=== PATIENT | female | born 1990 | race Hispanic/Latino ===

== ENCOUNTER 2016-12-16 20:13 | Emergency (ER) | payer SELFPAY ==
[~2016-12-16] VITALS: Ht 157.5 cm; Wt 92.7 kg
[~2016-12-16 20:13] MED LIST: IBUP-1152 PO; PER5 PO; PREN1TAB47 PO
[2016-12-16 20:25] VITALS: BP 136/88; PULSE 70; RESP 16; O2SAT 99
[2016-12-16 20:48] LABS: BASOPHILS % (AUTO) 0.3 % (0-3); EOSINOPHILS % (AUTO) 2.6 % (0-5); MONOCYTES % (AUTO) 6.1 % (4-12); Mean Corpuscular Hemoglobin 27.2 pg (27.0-35.0); Mean Corpuscular Volume 81.8 fL (81-100); NEUTROPHILS % (AUTO) 61.3 % (40-74); Platelet Count 267 bil/L (150-400)
--- NOTE | 2016-12-16 20:56 | ED.REPORT ---
HPI-Abd Pain F Under 40 Date of Service Dec 16, 2016 ED Provider: Dr. Chu Madrid is a health, Slovenian speaking 25 year old female who presents to the ED with concerns for abdominal pain that started 3 days ago. She states that the pain is not worsened with anything, as is not present with nausea, vomiting or diarrhea. The pain is intermittent, but since its onset, it has become worse and more constant. She reports never experiencing this pain in the past, she is not and is not a heavy drinker. Nursing Notes Stated Complaint: ABDOMINAL PAIN Chief Complaint: Female Abdominal Pain Nursing Notes Reviewed: Yes Allergies: Coded Allergies: sulfamethoxazole (Verified Allergy, Unknown, 12/16/16) trimethoprim (Verified Allergy, Unknown, 12/16/16) Uncoded Allergies: TREMITROPIN (Allergy, Unknown, 12/16/16) [place] antibiotic Scheduled Vit/Fe Fumarate/Fa-Expunged Drug, Do (-Expunged Drug, Do Not Renew!) 1 Tab Tablet 1 TAB PO DAILY Scheduled PRN IBUPROFEN-Expunged Drug, Do Not Renew! (IBUPROFEN-Expunged Drug, Do Not Renew!) 800 Mg Tablet 800 MG PO Q6 PRN PRN Oxycodone/APAP-Expunged Drug, Do Not Renew! (Percocet 5/325-Expunged Drug, Do Not Renew!) 1 Ea Tablet 1-2 EA PO Q6 PRN PRN General Time Seen by MD: 20:56 Chief Complaint Abdominal pain Hx Obtained From: Patient, Snag Grinder Arrived By: Walk-in Sudden in Onset?: Yes Onset Occurred: 3 days ago Symptom Duration: Intermittent Location: : Diffuse Quality: Painful Severity: Current: Mild Severity: Maximum: Moderate Similar Sx Previous: Yes Past Medical History Past Medical History Healthy Review of Systems Constitutional: Denies: Chills, Fever, Malaise, Weakness - generalized Respiratory: Denies: Non-productive cough, Shortness of breath, Wheezing Cardiovascular: Denies: Chest pain, Syncope GI: Reports: Abdominal pain, Denies: Constipation, Diarrhea, Nausea, Vomiting Female: Denies: Dysuria, Flank pain, Urinary urgency Musculoskeletal: Denies: Back pain, Neck pain Complete sys rev & neg: except as marked. Physical Exam Initial Vital Signs Vital Signs (First) Date Time Temp Pulse Resp B/P Pulse Ox O2 Delivery O2 Flow Rate FiO2 12/16/16 20:25 36.8 70 16 136/88 99 Room Air Initial VS: Reviewed Head / Eyes: Atraumatic, Normocephalic, PERRL ENT: Mucous membranes moist, Conjunctiva normal, No scleral icterus Neck: Supple, Non-tender, Full range of motion Neurologic: Alert, Oriented, Nonfocal General/Constitutional: Awake, Alert Distress / Hydration: Positive: Distress moderate Appearance / Presentation: Positive: Uncomfortable Respiratory / Chest: Atraumatic, Breath sounds NL, Breath sounds = bilat, No respiratory distress Cardiovascular: Heart rate NL, Regular rhythm, Heart sounds NL, No gallop, No murmurs, No rubs Abdomen: Soft Tenderness/Guarding/Rebound: Positive: Tender RUQ... (Moderate) Back: Atraumatic, Inspection NL, No CVA tenderness Interpretation & Diagnostics Lab Results Interpretation Result Diagram: 12/16/16203712/16/162037 Test 12/16/16 20:35 12/16/16 20:38 12/16/16 21:18 12/16/16 21:22 Hold [place] Top Tube Received (Received) White Blood Count 8.0th/mm3 (3.8-10.1) Red Blood Count 4.67mil/mm3 (3.90-5.20) Hemoglobin 12.7g/dL (12.0-15.6) Hematocrit 38.2% (35.0-46.0) Mean Corpuscular Volume 81.8fL (81-100) Mean Corpuscular Hemoglobin 27.2pg (27.0-35.0) Mean Corpuscular Hemoglobin Concent 33.2% (32.0-37.0) Red Cell Distribution Width 13.3% (12.3-15.4) Platelet Count 267bil/L (150-400) Neutrophils (%) (Auto) 61.3% (40-74) Lymphocytes (%) (Auto) 29.4% (14-46) Monocytes (%) (Auto) 6.1% (4-12) Eosinophils (%) (Auto) 2.6% (0-5) Basophils (%) (Auto) 0.3% (0-3) Sodium Level 140mEq/L (134-144) Potassium Level 4.1mEq/L (3.5-5.2) Chloride Level 102mEq/L (97-108) Carbon Dioxide Level 23mmol/L (18-29) Blood Urea Nitrogen 11mg/dL (6-20) Creatinine 0.46mg/dL (0.57-1.00) Estimat Glomerular Filtration Rate 235mL/min (>59) Glucose Level 108mg/dL (60-99) Calcium Level 9.3mg/dL (8.5-10.1) Magnesium Level 1.8mg/dL (1.6-2.6) Total Bilirubin 0.2mg/dL (0.0-1.2) Aspartate Amino Transf (AST/SGOT) 22U/L (0-50) Alanine Aminotransferase (ALT/SGPT) 36U/L (0-32) Alkaline Phosphatase 91U/L (25-150) Total Protein 7.9g/dL (6.4-8.4) Albumin 4.4g/dL (3.4-5.0) Lipase 30U/L (13-60) Hold Urine Received (Received) Urine Color Straw (YELLOW) Urine Appearance Clear (CLEAR,HAZY) Urine pH 5.5 (5.0-8.0) Urine Specific [place] 1.015 (1.003-1.035) Urine Protein Negativemg/dL (NEG,TRACE) Urine Glucose (UA) Negativemg/dL (NEGATIVE) Urine Ketones Negativemg/dL (NEGATIVE) Urine Occult Blood Negative (NEGATIVE) Urine Nitrite Negative (NEGATIVE) Urine Bilirubin Negative (NEGATIVE) Urine Urobilinogen Normalmg/dL (NORMAL) Urine Leukocyte Esterase Negative (NEGATIVE) Urine RBC 0-2/hpf (0-2) Urine WBC 0-5/hpf (0-5) Urine Epithelial Cells Few/hpf (NONE-MOD) Urine Crystals None seen (NONE SEEN) Urine Bacteria None/hpf (NONE-FEW) Urine Hyaline Casts None/lpf (NONE) Urine Granular Casts None seen (NONE SEEN) Urine Waxy Casts None seen (NONE SEEN) Urine Red Blood Cell Casts None seen (NONE SEEN) Urine White Blood Cell Casts None seen (NONE SEEN) Urine Mucus None seen (None Seen) Urine Trichomonas None seen (NONE SEEN) Urine Yeast None (NONE SEEN) Urinalysis Comment None Urine Culture Reflexed Not indicated Lab Results Interpretation: US Abdomen - Limited: Borderline hepatomegaly. Fatty liver Normal gallbladder and ducts with the exception of possible slight hypoechoic sludge in the gallbladder. Nonvisualized pancras. CT Abd / Pelvis Interpretation Conclusion: Appendix visualized and normal Fluid-filled dialted terminal ileum, low-grade infection o inflammatory bowel disease should be considered. 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 Study type: Abdominal CT IV contrast Interpretation / Wet Read by: Interpret - Radiologist Re-Eval/Medical Decision Med Decision/Clinical Course The ultrasound shows biliary sludge and she was certainly tender over the gallbladder. No signs of cholecystitis. The abdominal CT showed a normal appendix. Perhaps her significant inflammation of the terminal ileum. No acute surgical emergency identified. No clinical peritonitis. Laboratory work reassured. Pain adequately controlled. I will place her on a course of antibiotics for her abdomen and gallbladder. Short course of [place] and she has been referred for urgent follow-up to surgery gastroenterology and her primary care. Routine opiate warnings given. At discharge she was essentially pain- free with a soft abdomen. Source of Hx: Old records Re-Evaluation/Progress : Time of Eval: 23:40 Re-Evaluation/Progress Note: Pt is rechecked and informed of her CT results and the plan to discharge her at this time. She understands and agrees, all questions are addressed. Counseled Regarding: Diagnosis, Lab results, Need for follow-up, When/why to return to ED Discharge & Departure Primary Impression: Biliary sludge Additional Impressions: Ileitis Abdominal pain Abdominal location: generalized Qualified Code: R10.84 - Generalized abdominal pain Disposition: Home Discharge Condition All VS Reviewed: Yes Condition: Stable Patient Instructions: Acute Abdominal Pain (ED), Gallstones (DC) Additional Instructions: Your CT scan showed inflammation of your bowel, as well as sludge in your gallbladder, these both could be contributing to your symptoms today. Take the antibiotic (Augmentin) and pain medication ([place]) as prescribed. Do not drink or drive while on these medications. Follow up with your primary care provider later this week for a re-check. Additionally, call general surgery and GI in the morning to schedule appointments. Return to the emergency department with any worsening abdominal pain, intractable vomiting, fevers, or any other new or worsening symptoms. Referrals: Renato Stock MD (PCP) Gabriela Jon MD, Allison J MD Scribe Attestation Portions of this note were transcribed by Crystal Finley. I, Dr. Sage personally performed the history, physical exam and medical decision-making; I reviewed and confirmed the accuracy of the information in the transcribed note. Signed by: Estela Hamlin, 12/16/2016 [Time]. copies to: Gabriela Jon MD; Renato Stock MD; Tana Armenta MD, Todd P DO Dec 16, 2016 20:56 TULIO FINLEY Dec 16, 2016 21:17
[2016-12-16 21:12] LABS: Magnesium 1.8 mg/dL (1.6-2.6)
[2016-12-16] MEDS ORDERED: Ondansetron 2 mg/mL 2 mL Inj IVPUSH PRN (21:20)
[2016-12-16] MEDS ORDERED: 0.9% Sodium Chloride 1,000 ML IV ONE (21:20)
[2016-12-16] MEDS: HYDROmorphone 0.5 mg/0.5 mL iSecure Syringe IVPUSH PRN ×3 (21:29→23:50)
[2016-12-16 21:37] LABS: APPEARANCE,URINE CLEAR (CLEAR,HAZY); COLOR,URINE STRAW (YELLOW); OCCULT BLOOD,URINE NEGATIVE (NEGATIVE); PH,URINE 5.5 (5.0-8.0); UROBILINOGEN,URINE NORMAL (NORMAL)
[2016-12-16 23:49] VITALS: BP 107/68; PULSE 78; RESP 16; O2SAT 99
[2016-12-17 00:51] VITALS: BP 106/63; PULSE 89; RESP 16; O2SAT 98
--- NOTE | 2016-12-17 08:04 | DRSVH ---
PROCEDURE: US ABDOMEN, LIMITED ([id number]) INDICATIONS: ruq abdominal pain TECHNIQUE: Real-time focused scanning was performed of the abdomen, with image documentation. COMPARISON: None. FINDINGS: Liver: Diffuse increased echogenicity. No hepatic masses. Gallbladder: There is color sludge. No cholelithiasis. Gallbladder wall measures upper limits of norm al. No pericholecystic fluid. Biliary tree: Within normal limits. No intra-or extrahepatic biliary ductal dilatation. Pancreas: Obscured by bowel gas. Right kidney: Sonographically normal. No solid masses. No hydronephrosis or ureterectasis. No calculi . IMPRESSION: 1. Ultrasound findings do not support acute cholecystitis. If there is continued clinical concern for acute cholecystitis recommend a HIDA scan. 2. Fatty infiltration of the liver. Dictated by: Ihsan Herrera M.D. on 12/17/2016 at 8:00 Approved by: Ihsan Herrera M.D. on 12/17/2016 at 8:03
--- NOTE | 2016-12-17 08:45 | DRSVH ---
PROCEDURE: CT ABDOMEN AND PELVIS WITH CONTRAST ([id number]) INDICATIONS: severe periumbillical pain and tenderness TECHNIQUE: After the administration of intravenous contrast, 5 mm thick sections acquired from the diaphragm to the symphysis. 5 mm coronal and sagittal reformats were acquired. For radiation dose reduction, the following was used: automated exposure control, adjustment of mA and/or kV according to patient siz e. COMPARISON: None. FINDINGS: Image quality: Excellent. ABDOMEN: Lung bases: Lung bases are clear. Heart size is normal. Solid organs: Liver and spleen are normal in size and enhancement. There is a 1.5 cm diameter enhanc ing lesion in hepatic segment 8 which may represent flash filling of a hemangioma. Diffuse fatty infi ltration of the liver. Gallbladder is within normal limits. Biliary system is non dilated. Pancreas enhances normally. No adrenal nodules. Kidneys demonstrate normal size and enhancement, without hy dronephrosis. Peritoneum and bowel: Bowel loops demonstrate normal wall thickness. Terminal ileum is distended and filled with fecal material. No free fluid or air. The appendix is normal. Nodes and vessels: No retroperitoneal or mesenteric adenopathy by size criteria. Aorta and inferior vena cava are normal in size. Miscellaneous: No ventral hernias. PELVIS: Genitourinary: Bladder wall thickness is normal. Miscellaneous: No inguinal hernias or adenopathy. Bones: There is a 5.5 x 4.0 x 7.9 cm multiloculated, expansile, lytic lesion involving the left ilium extending to the left acetabular roof. No vertebral body compression fractures. IMPRESSION: 1. Distended terminal ileum which contains fecal material. Finding may be related to incompetent ileo cecal valve versus infectious or inflammatory processes. Please correlate with clinical data. 2. 1.5 cm enhancing hepatic lesion may represent flash filling of hemangioma, however hypervascular n eoplastic lesion cannot be excluded. Recommend dedicated CT scan hepatic protocol for definitive mounika acterization. 3. 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 Recommend MRI of the pelvis with and without gadolinium for definitive characterization. Dictated by: Pilar Garcia MD, PhD on 12/17/2016 at 8:34 Approved by: Pilar Garcia MD, PhD on 12/17/2016 at 8:43
== END 2016-12-17 00:52 | disposition home or self-care (01) ==
LOC: SED 20:13
DX: K83.8 Other specified diseases of biliary tract (principal); K52.9 Noninfective gastroenteritis and colitis, unspecified; Z88.2 Allergy status to sulfonamides; Z88.8 Allergy status to other drugs, medicaments and biological substances
CPT/HCPCS: 36415; 74177; 76705; 80053; 81000; 81025; 83690; 83735; 85025; 96361; 96374; 96375; 96376; 99285; J1170; J2405; J7030; Q9967

== ENCOUNTER 2016-12-23 13:13 | Emergency (ER) | payer SELFPAY ==
[~2016-12-23] VITALS: Ht 157.5 cm; Wt 93.2 kg
[2016-12-23 13:29] VITALS: BP 114/70; PULSE 82; RESP 15; O2SAT 100
[2016-12-23 14:51] LABS: BASOPHILS % (AUTO) 0.1 % (0-3); EOSINOPHILS % (AUTO) 2.5 % (0-5); MONOCYTES % (AUTO) 6.3 % (4-12); Mean Corpuscular Hemoglobin 26.8 pg (27.0-35.0); NEUTROPHILS % (AUTO) 64.2 % (40-74); Platelet Count 233 bil/L (150-400)
[2016-12-23] MEDS ORDERED: Ondansetron 2 mg/mL 2 mL Inj IVPUSH ONE (15:10)
[2016-12-23] MEDS ORDERED: HYDROmorphone 0.5 mg/0.5 mL iSecure Syringe IVPUSH PRN (15:10)
[2016-12-23] MEDS ORDERED: 0.9% Sodium Chloride 1,000 ML IV ONE (15:10)
--- NOTE | 2016-12-23 15:14 | ED.REPORT ---
HPI-Abd Pain F Under 40 Date of Service Dec 23, 2016 ED Provider: Kehinde Valverde MD Patient is a 26 year old female with a history of who presents to the ED complaining of right upper quadrant abdominal pain onset 7 hours ago. Associated symptoms include nausea and chills. She denies fever, vomiting, constipation or diarrhea. Patient reports that the pain is exacerbated with eating. 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 She also had an ultrasound that demonstrated no evidence of cholecystis. The patient was given pain medication with an appointment to see a surgeon. Patient ran out of pain medications and her pain has returned. Nursing Notes Stated Complaint: ABD PAIN Chief Complaint: Female Abdominal Pain Nursing Notes Reviewed: Yes Allergies: Coded Allergies: sulfamethoxazole (Verified Allergy, Unknown, 12/23/16) trimethoprim (Verified Allergy, Unknown, 12/23/16) Uncoded Allergies: TREMITROPIN (Allergy, Unknown, 12/16/16) [place] antibiotic Scheduled Vit/Fe Fumarate/Fa-Expunged Drug, Do (-Expunged Drug, Do Not Renew!) 1 Tab Tablet 1 TAB PO DAILY Scheduled PRN Hydrocodone-Acetaminophen 5-325 mg (Hydrocodone-Acetaminophen 5-325 mg) 1 Each Tablet 1 TABLET PO Q4H PRN PRN For Pain IBUPROFEN-Expunged Drug, Do Not Renew! (IBUPROFEN-Expunged Drug, Do Not Renew!) 800 Mg Tablet 800 MG PO Q6 PRN PRN Oxycodone/APAP-Expunged Drug, Do Not Renew! (Percocet 5/325-Expunged Drug, Do Not Renew!) 1 Ea Tablet 1-2 EA PO Q6 PRN PRN General Time Seen by MD: 15:05 Chief Complaint Abdominal pain Hx Obtained From: Patient Arrived By: Walk-in Sudden in Onset?: Yes Onset Occurred: 5 - 8 hours ago Symptom Duration: Since onset Location: : RUQ Quality: Painful, Sharp Radiation: : Does not radiate Severity: Current: Moderate Recent Healthcare: Recent doctor visit Similar Sx Previous: Yes Past Medical History Past Medical History Healthy Past Surgical History Reports: Smoking History Unknown if Ever Smoker Ambulatory Status Independent Review of Systems Constitutional: Reports: Chills, Denies: Fever Respiratory: Denies: Non-productive cough, Shortness of breath GI: Reports: Abdominal pain, Nausea, Denies: Constipation, Diarrhea, Vomiting Complete sys rev & neg: except as marked. Skin: Denies Itching, Denies Rash Physical Exam Initial Vital Signs Vital Signs (First) Date Time Temp Pulse Resp B/P Pulse Ox O2 Delivery O2 Flow Rate FiO2 12/23/16 13:29 36.9 82 15 114/70 100 Room Air Initial VS: Reviewed General/Constitutional: Awake, Alert Respiratory / Chest: Atraumatic, Breath sounds NL, Breath sounds = bilat, No respiratory distress Cardiovascular: Heart rate NL, Regular rhythm, Heart sounds NL Abdomen: Atraumatic, Soft, No guarding, No rebound, BS normoactive Tenderness/Guarding/Rebound: Positive: Tender RUQ... 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 Abdomen US from 12/16/16 showed no evidence of cholecystis. Lab Results Interpretation Result Diagram: 12/23/16 1442 12/23/16 1442 Test 12/23/16 14:42 White Blood Count 6.8th/mm3 (3.8-10.1) Red Blood Count 4.62mil/mm3 (3.90-5.20) Hemoglobin 12.4g/dL (12.0-15.6) Hematocrit 37.9% (35.0-46.0) Mean Corpuscular Volume 82.0fL (81-100) Mean Corpuscular Hemoglobin 26.8pg (27.0-35.0) Mean Corpuscular Hemoglobin Concent 32.7% (32.0-37.0) Red Cell Distribution Width 13.0% (12.3-15.4) Platelet Count 233bil/L (150-400) Neutrophils (%) (Auto) 64.2% (40-74) Lymphocytes (%) (Auto) 26.6% (14-46) Monocytes (%) (Auto) 6.3% (4-12) Eosinophils (%) (Auto) 2.5% (0-5) Basophils (%) (Auto) 0.1% (0-3) Sodium Level 141mEq/L (134-144) Potassium Level 4.1mEq/L (3.5-5.2) Chloride Level 106mEq/L (97-108) Carbon Dioxide Level 21mmol/L (18-29) Blood Urea Nitrogen 9mg/dL (6-20) Creatinine 0.35mg/dL (0.57-1.00) Estimat Glomerular Filtration Rate 320mL/min (>59) Glucose Level 91mg/dL (60-99) Calcium Level 8.7mg/dL (8.5-10.1) Magnesium Level 1.8mg/dL (1.6-2.6) Total Bilirubin 0.2mg/dL (0.0-1.2) Aspartate Amino Transf (AST/SGOT) 18U/L (0-50) Alanine Aminotransferase (ALT/SGPT) 29U/L (0-32) Alkaline Phosphatase 89U/L (25-150) Total Protein 7.4g/dL (6.4-8.4) Albumin 4.1g/dL (3.4-5.0) Lipase 30U/L (13-60) Human Chorionic Gonadotropin, Qual Negative (Negative) Hold [place] Top Tube Received (Received) Re-Eval/Medical Decision Med Decision/Clinical Course In summary, the patient is a 26-year-old female who presents to the emergency department complaining of ongoing right upper quadrant pain for which she was previously evaluated in this emergency department with CT scan that showed distended ileum with likely fecal matter present consistent with ileocecal valve dysfunction as well as a right upper quadrant ultrasound which is relatively unremarkable. She reports that she has been doing well with oral pain medications Zofran out of her pain medications yesterday. She has an appointment with surgery tomorrow and is requesting pain management. Here in the emergency department the patient is afebrile with stable vital signs and examination as above. The patient received the blow medications with good effect: GI cocktail, IVF, Zofran, Hydromorphone Labs: CBC unremarkable CMP unremarkable LFTs within normal limits Lipase within normal limits U preg: negative Serial abdominal examinations remained reassuring. Given her previous workup, laboratory studies today and imaging studies my suspicion that her pain is biliary in nature is relatively low. That being said, she has an appointment with surgery tomorrow for further evaluation and given that she is stable with reassuring laboratory studies I do not see any immediate need to repeat her imaging studies. She is comfortable with discharge and following up with surgery tomorrow and is advised to return immediately for any new or worsening symptoms. Prior to discharge follow-up and return precautions were reviewed in detail with the patient who verbalized understanding and agreement with the plan. The patient was discharged in stable condition. Re-Evaluation/Progress : Time of Eval: 17:09 Re-Evaluation/Progress Note: Discussed results and plan for discharge. Patient understands and agrees to plan. All questions were addressed. Counseled Regarding: Diagnosis, Lab results, Need for follow-up, When/why to return to ED Discharge & Departure Primary Impression: Abdominal pain Abdominal location: right upper quadrant Qualified Code: R10.11 - Right upper quadrant pain Additional Impressions: Ileocecal valve syndrome Nausea Disposition: Home Discharge Condition All VS Reviewed: Yes Condition: Critical Patient Instructions: Acute Abdominal Pain (ED) Additional Instructions: Thank you for seeking care at the emergency room. Our primary goal today in the Emergency Department was to evaluate you for any life-threatening conditions. Your evaluation was reassuring. You will be discharged with a prescription for pain medication. You should keep your follow up appointment with the surgeon. You should return to the Emergency Department immediately if you develop fevers , vomiting, or any other concerning signs or symptoms. Thank you for letting us partake in your care today. You have been prescribed a narcotic for pain relief. These drugs are usually combined with acetaminophen (Tylenol#3, Percocet, Darvocet, Anexsia, Vicodin) or aspirin (Empirin#3, Percodan, Synalogs-DC) for increased effect. Narcotics act on the central nervous system to reduce pain; they also impair mental alertness and physical abilities. We advise you not to drink alcohol, drive a car, or operate dangerous equipment when you are taking these drugs. You can lessen stomach irritation from your medicine by taking it with meals or a full glass of water. Common side effects of narcotics are: Nausea and vomiting , heartburn, constipation, dizziness, sleepiness, and mood changes. If you have bothersome side effects or symptoms of an allergic reaction (itching, hives, rash), stop taking your medicine and call your doctor or the emergency room right away. Please keep your narcotic medicine well out of the reach of children. GOOGLE TRANSLATE Carie por la bsqueda de atencin en la justa de emergencias. Nuestro principal objetivo hoy en urgencias fue evaluArte para cualquier condici n peligrosa para la yesica. Hester evaluacin era tranquilizadora. Usted ser dado de ubaldo con erik prescripcin de analgsicos. Debe mantener el seguimiento de la brent con el cirujano. Usted debe devolver al Departamento de emergencia inmediatamente si usted desarrolla fiebre, vmito, o cualquier otro en cuanto a signos o sntomas. Carie por dejarnos participar en hester atencin hoy en da. Le kaur prescrito un narctico para aliviar el dolor. Estas drogas se combinan generalmente con acetaminofeno (Tylenol #3, Percocet, Darvocet, Anexsia, Vicodin ) o aspirina (Percodan, Empirin #3, Synalogs-DC) para mayor efecto. Narcticos actan sobre el sistema nervioso central para reducir el dolor; tambin deterioran el estado de alerta mental y habilidades fsicas. Aconsejamos no beber alcohol, conducen un vehculo, o usar equipo peligroso cuando usted est tomando estos medicamentos. Pueden disminuir la irritacin estomacal de hester medicina por tomarlo con las comidas o un vaso lleno de agua. Efectos secundarios comunes de drogas son: n useas y vmitos, ardor de estmago, estreimiento, mareos, somnolencia y estado de boone cambios. Si usted tiene sntomas de erik reaccin alrgica (prurito, urticaria, erupcin) o efectos secundarios molestos, deje de yogi el medicamento y llame a hester mdico o a la justa de emergencias inmediatamente. Por favor mantenga maria t estupefacientes medicamentos fuera del alcance de los nios. Referrals: Renato Stock MD (PCP) Scribe Attestation Portions of this note were transcribed by Homa Santacruz. I, Dr. Valverde personally performed the history, physical exam and medical decision-making; I reviewed and confirmed the accuracy of the information in the transcribed note. Signed by: Estela Travis, 12/23/16 copies to: Renato Stock MD, Beck O MD Dec 23, 2016 15:14 Sonya Santacruz Dec 23, 2016 16:01
[2016-12-23 15:17] LABS: Magnesium 1.8 mg/dL (1.6-2.6)
[2016-12-23] MEDS ORDERED: HYDR-4003 PO (16:28)
[2016-12-23] MEDS ORDERED: LidocaineVisc 2%:Antacid 1:1 10 mL Syringe PO ONE (16:30)
[2016-12-23 17:34] VITALS: PULSE 63; RESP 16; O2SAT 98
== END 2016-12-23 17:36 | disposition home or self-care (01) ==
LOC: SED 13:13
DX: R10.11 Right upper quadrant pain (principal); K63.89 Other specified diseases of intestine; R11.0 Nausea; Z88.2 Allergy status to sulfonamides; Z88.8 Allergy status to other drugs, medicaments and biological substances
CPT/HCPCS: 36415; 80053; 83690; 83735; 84703; 85025; 96361; 96374; 96375; 99284; J1170; J2405; J7030

== ENCOUNTER → 2016-12-26 | Day surgery (SDC) | payer SELFPAY ==
[~2016-12-26] VITALS: Ht 157.5 cm; Wt 93.0 kg
[2016-12-26] VITALS (12 sets, daily range): BP systolic 109–139; BP diastolic 61–81; PULSE 63–110; RESP 14–22; O2SAT 94–100
[~2016-12-26] MED LIST changes: +Atropine 0.4 mg/mL Inj IVPUSH PRN; +Bupivacaine-MPF 0.25% 30 mL Inj INFILTRATE ONE; +Dexamethasone 4 mg/mL Inj IVPUSH PRN; +Dexamethasone 4 mg/mL Inj ONE; +EPHEDrine Sulfate 50 mg/mL Inj IVPUSH PRN; +Glycopyrrolate 0.2 MG/ML 1mL Inj ONE; +HYDR-4003 PO; +Labetalol 5 mg/mL 20 mL Inj IV PRN; +Lactated Ringer's 1,000 ML IV ONE; +Lactated Ringer's 1,000 ML IV SCH; +Lactated Ringer's 500 ML IV PRN; +MetoCLOpramide 5 mg/mL 2 mL Inj IVPUSH PRN; +MetoCLOpramide 5 mg/mL 2 mL Inj ONE; +Neostigmine 1 mg/mL 10 mL Inj ONE; +Ondansetron 2 mg/mL 2 mL Inj IVPUSH PRN; +Ondansetron 2 mg/mL 2 mL Inj ONE; +Phenylephrine 10,000 mCg/mL Inj IVPUSH PRN; +Phenylephrine 10,000 mCg/mL Inj ONE; +Rocuronium 10 mg/mL 5 mL Inj ONE; +fentaNYL-PF 50 mCg/mL 2 mL Inj ONE; +hydrALAZINE 20 mg/mL Inj IVPUSH PRN; +oxyCODONE-Acetamin 5-325 mg Tablet PO PRN
--- NOTE | 2016-12-26 12:47 | PCM.HPANE ---
Patient Data Date of Service: Dec 26, 2016 Surgeon Admitting Provider: Attending Provider:Tana Armenta MD Primary Care Physician:Renato Stock MD Other Provider:David Rivera Anesthesia Reason for Visit Cholecystitis Ht/WT & BMI Height (Feet): 5 Height (Inches): 2 Weight (Kilograms): 93 Body Mass Index 37.00 Allergies Coded Allergies: sulfamethoxazole (Verified Allergy, Unknown, 12/23/16) trimethoprim (Verified Allergy, Unknown, 12/23/16) Uncoded Allergies: TREMITROPIN (Allergy, Unknown, 12/26/16) [place]adian antibiotic TRINIDADIAN BRAND NAME OF TMP/SMX, "TRIMETOPRIM" Past Anesthesia History Anesthesia History: Denies:: Anesthesia Reactions, Fam Anesthesia Reaction, Malignant Hyperthermia Diabetes History Hx Diabetes?: No MRSA MRSA: No Medications Active Scripts Hydrocodone-Acetaminophen 5-325 mg 1 Each Tablet1 Tablet PO Q4H PRN For Pain # 14 TABLET Prov:Kehinde Valverde MD 12/23/16 Oxycodone/APAP-Expunged Drug, Do Not Renew! (Percocet 5/325-Expunged Drug, Do Not Renew!)1 Ea Tablet1-2 Ea PO Q6 PRN #50 Ref 0 Prov:Thiago Saxena MD 08/28/12 IBUPROFEN-Expunged Drug, Do Not Renew! 800 Mg [id number] Mg PO Q6 PRN #50 Ref 1 Prov:Thiago Saxena MD 08/28/12 Reported Medications Vit/Fe Fumarate/Fa-Expunged Drug, Do (-Expunged Drug, Do Not Renew!)1 Tab Tablet1 Tab PO DAILY 04/03/11 History History of ENT Problems?: No HEENT History: Denies:: Abnormal Airway Denture Type: None Teeth Condition: Within Normal Limits Hx of Heart Problems?: No Cardiovascular History: Denies:: Cardiac Surgery Chest Pain Congestive Heart Failure Hypertension Hx of Respiratory Problem?: No Respiratory History: Denies:: Tuberculosis Hx Neurologic Problems?: No Hx of GI Problems?: Yes Gastrointestinal History: Positive for:: Gall Bladder Disease Hx of Problems?: No Female Hx: Denies:: Currently (neg upreg) Hx Musculoskeletal Problems?: No Hx of Psycho/Social Problems?: No Psycho Social History: Denies:: Anxiety Bipolar Disorder Hx Depression Suicide Attempt Hx Surgeries?: Yes (C section times three) Other History: Positive for:: Hospitalization (C section times three) Denies:: Cancer Endocrine Disease Thyroid Disease Hx Diabetes: No Hx Alcohol Use: NoHx Substance Use: NoHave You Smoked inLast 12 mo: No Stop/Bang Treated for Sleep Apnea?: No Do You Have a CPAP Machine?: No S-Snoring: Do You Snore Loudly: No T-Tired: feel tired, fatigued: No O-Obsered: Observed not breath: No P-Blood Pressure: treated: No B- Body Mass Index > 35 kg/m2: No A- Age over 50: No N- Neck Large Circumference: Yes G- Gender Male: No HALINA Total Score: 1 HALINA Risk Assessment: Low Risk, <3 Yes Risk Assessment Category Category 1A: Patient has history of documented sleep apnea, and HAS NOT received any narcotic, sedative or anesthesia administration during this stay. Category 1B: Patient has history of documented sleep apnea, and HAS received any narcotic , sedative or anesthesia administration during this stay Category 2: Patient has SUSPECTED Obstructive Sleep Apnea, and HAS received any narcotic , sedative or anesthesia administration during this stay. Category 3: Patient has SUSPECTED Obstructive Sleep Apnea and HAS NOT received narcotic, sedative or anesthesia administration during this stay. Category 4: Outpatient in Procedural Areas with known sleep apnea or who screen positive for High Risk via the STOP/BANG questionnaire. Exam Exam Vital Signs Vital Signs Date Time Temp Pulse Resp B/P Pulse Ox O2 Delivery O2 Flow Rate FiO2 12/26/16 12:15 36.6 80 14 124/66 98 Room Air General Appearance: Alert, Oriented X3, Cooperative HEENT/AIRWAY: MP 2, Neck Movement (Full) Lungs: Clear to Auscultation, Normal Air Movement Heart: Regular Rate/Rhythm, Normal S1, Normal S2 Meds/Labs/Diagnostics Admission Meds Current Medications Lactated Ringer's (Lr) 1,000 ml @ ud STK-MED ONCE IV Last administered on 12/26t 12:26; Start 12/26/16 at 12:26; Stop 12/26/16 at 12:27; Status DC Plan Impression Patient chart reviewed, patient interviewed and anesthestic plan with risks, benefits, and alternatives discussed, and informed consent obtained. NPO per Anesth. Guidelines: Yes ASA Physical Status: ASA2 Mod Systemic Disease Anesthetic Plan: GA Bene/Risks/Altern/Consents: Yes HP Complete Prior to Induction: Yes Rasta Evans MD Dec 26, 2016 12:47
--- NOTE | 2016-12-26 14:14 | PCM.SURGOP ---
Surgical Operative Report Date of Service: Dec 26, 2016 Pre Operative Diagnosis Biliary dyskinesia Post Operative Diagnosis Acalculous cholecystitis Procedure: Laparoscopic cholecystectomy Surgeon and Select Banker: Surgeon: Tana Armenta MD Assistants: Jony Casillas PA-C; Staci Zamora, MS3 The presence of an therapist's assistant was necessary for dissection and retraction. Indication for Procedure This is a 26-year-old woman who presented to the emergency department with severe postprandial right upper quadrant abdominal pain. CT scan and ultrasound revealed only gallbladder sludge and were otherwise unrevealing. She came to my clinic in severe pain soon thereafter. Therefore, I ordered a HIDA scan, which showed a significantly decreased gallbladder ejection fraction. Therefore, cholecystectomy was scheduled. Findings: Distended gallbladder with mild-moderate inflammation and a small amount of pericholecystic edema, consistent with cholecystitis. The gallbladder was opened on the back table and did not contain stones. Procedure Details The patient was brought to the operating room and placed in supine position. General endotracheal anesthesia was smoothly induced. Antibiotics were infused. A warming blanket and SCDs were placed. A foot board was placed. The operative field was prepped and draped in sterile fashion. A pause was performed to confirm the correct patient, procedure, site, and side. A transverse 10 mm incision was made just below the umbilicus. The abdomen was entered under direct vision using a Eloise port. Three additional 5 mm ports were placed in the epigastrium and right upper quadrant. The gallbladder was identified and lifted cephalad. Dissection then proceeded to identify the cystic duct, cystic artery, and to expose the bottom one third of the cystic plate. Once there were two and only two structures entering the gallbladder, the cystic duct was clipped on the gallbladder and twice on the patient side, and the cystic artery was clipped once on the patient's side and once on the gallbladder side, and both were then divided. The gallbladder was then removed from its bed on the liver with electrocautery. Prior to completely removing the gallbladder, a final look was taken at the stump of the cystic artery and cystic duct, and there was no bleeding or bile leak. The gallbladder was then fully removed from the liver and placed in an EndoCatch bag and removed. The three 5 mm ports were removed under direct vision, the 10 mm mid abdominal port was removed, and a [id number] 0 PDS was used to close the fascia. There was no fascial defect at the end of the case. 0.5% Marcaine with epinephrine was infused at all port sites for postoperative analgesia. The skin was closed with subcuticular 4-0 Monocryl. Sterile dressings were placed. The patient was awakened from general anesthesia and taken to the postoperative care unit in good condition. Complications There were no periprocedural complications identified. Surgical Specimen Removed: Yes Specimen sent to Pathology: Yes Surgical Specimen description: Gallbladder Anesthetic Plan: GA Grafts, Implants: None Output, Estimated Blood Loss: 2 (ml) Blood Administration during gomez: No Tana Armenta MD Dec 26, 2016 14:14
[2016-12-26] MEDS: HYDROmorphone 1 mg/mL Inj IVPUSH PRN ×3 (14:25→14:52)
[2016-12-26] MEDS: fentaNYL-PF 50 mCg/mL 2 mL Inj IVPUSH PRN ×2 (14:35→14:41)
--- NOTE | 2016-12-26 14:55 | PCM.ANEP1 ---
Post Anesthesia PACU Phase 1 Assessment Date of Service: Dec 26, 2016 Vital Signs Vital Signs Date Time Temp Pulse Resp B/P Pulse Ox O2 Delivery O2 Flow Rate FiO2 12/26/16 14:45 37.3 84 15 116/69 94 Room Air 12/26/16 14:30 67 21 125/61 100 Simple Mask 8 12/26/16 14:25 67 21 125/71 100 Simple Mask 8 12/26/16 14:20 66 22 110/67 100 Simple Mask 8 12/26/16 14:15 67 18 117/61 100 Simple Mask 8 12/26/16 14:11 37.6 63 21 118/63 100 Simple Mask 8 12/26/16 12:15 36.6 80 14 124/66 98 Room Air Anesthetic Administered: GA Level of Alertness: Awake, talking NGUYEN's with Equal Strength: Yes Pain: No Nausea or Vomiting: No CV Function & Hydration Stable: Yes Airway Device: Oxygen Delivery: Simple Mask Lungs: Normal Air Movement Dermatome Level: Full Sensation PACU Phase 2 Assessment Complications: No Follow up Care: N/A Patient Instructions Provided: N/A Rasta Evans MD Dec 26, 2016 14:55
--- NOTE | 2016-12-31 16:07 | PATH ---
SURGICAL PATHOLOGY Attending Physician:Tana Armenta MD CASE STATUS: Signed Out PATIENT NAME: TOMMY CAVAZOS PID: [id number] : 1990 DATE COLLECTED:12/26/2016 00:00 SPECIMEN: Gallbladder CLINICAL HISTORY: CHOLECYSTITIS 1). GALLBLADDER FINAL DIAGNOSIS: 1.GALLBLADDER, CHOLECYSTECTOMY: CHRONIC CHOLECYSTITIS WITH CHOLESTEROLOSIS. No calculi identified. No evidence of dysplasia or malignancy. ICD10 K81.1 GROSS DESCRIPTION: Labeled: Gallbladder. Preoperative Diagnosis: Cholecystitis. Received in formalin, labeled with the patient's name and designated "gallbladder" is a 6.5 x 3.0 x 2.5 cm previously opened gallbladder. The serosa is goldstein-green, smooth and glistening. The wall is soft, pliable and up to 0.3 cm in thickness. The lumen contains green viscous bile and no calculi are identified within the lumen or in the specimen container. The mucosa is green, soft, velvety and diffusely speckled yellow. The cystic duct margin is inked blue. History Card Clerk sections are submitted in one cassette. ([id number]) MICRO DESCRIPTION: See diagnosis. ICD-9 CODES: CPT CODES: 1: 31411 Electronically Signed Out Celine Raymundo MD [facility] Pathology [facility] [address], [place] [address] Technical component performed at [facility], [facility] [address], [place], [address]
== END | disposition home or self-care (01) ==
LOC: SAS 11:46
PROVIDERS: ATTEND Surgery
DX: K81.1 Chronic cholecystitis (principal)
CPT/HCPCS: 47562; J0690; J1100; J1170; J1885; J2175; J2250; J2370; J2405; J2710; J2765; J3010; J7120